=== PATIENT | female | born 1985 | race Two or more races ===

== ENCOUNTER 2016-04-12 17:34 | Emergency (ER) | payer OTHER ==
[~2016-04-12] VITALS: Ht 162.6 cm; Wt 68.9 kg
[2016-04-12 18:39] LABS: BASOPHILS % (AUTO) 1.3 % (0.0-2.0); LYMPHOCYTES % (AUTO) 26.2 % (20.0-45.0); MEAN CORPUSCULAR HEMOGLOBIN 30.6 PG (27.0-31.0); MEAN CORPUSCULAR HGB CONC 33.6 G/DL (32.0-36.0); MEAN CORPUSCULAR VOLUME 91 FL (80-99); MEAN PLATELET VOLUME 9.4 FL (6.5-10.1); MONOCYTES % (AUTO) 7.6 % (1.0-10.0); NEUTROPHILS % (AUTO) 62.9 % (45.0-75.0); PLATELET COUNT 190 K/UL (150-450); RED BLOOD COUNT 4.04 M/UL (4.20-5.40); RED CELL DISTRIBUTION WIDTH 12.6 % (11.6-14.8); WHITE BLOOD COUNT 9.6 K/UL (4.8-10.8)
[2016-04-12 18:41] LABS: APPEARANCE,URINE CLEAR; KETONES,URINE 1+ (NEGATIVE); LEUKOCYTE ESTERASE ,URINE 1+ (NEGATIVE); NITRITE,URINE NEGATIVE (NEGATIVE); PH,URINE 7 (4.5-8.0); PROTEIN,URINE NEGATIVE (NEGATIVE); UROBILINOGEN,URINE 1 MG/DL (0.0-1.0)
[2016-04-12 18:53] LABS: BACTERIA,URINE FEW /HPF; RBC,URINE 20-30 /HPF (0 - 2); SQUAMOUS EPITHELIAL CELL,UR FEW /LPF (NONE/OCC); WBC,URINE 0-2 /HPF (0 - 2)
[2016-04-12 18:56] LABS: INR 1.1 (0.9-1.1); PROTHROMBIN TIME 11.1 SEC (9.30-11.50)
[2016-04-12 19:00] LABS: ALANINE AMINOTRANSFERASE 12 U/L (3-33); ALBUMIN/GLOBULIN RATIO 1.3 (1.0-2.7); ANION GAP 15 (5-15); ASPARTATE AMINO TRANSFERASE 15 U/L (5-40); CALCIUM 9.3 mg/dL (8.6-10.2); CARBON DIOXIDE 27 mEQ/L (20-30); CHLORIDE 97 mEQ/L (98-107); CREATININE 0.7 mg/dL (0.5-0.9); GLOMERULAR FILTRATION RATE > 60 mL/min (>60); HEMOLYSIS 5; POTASSIUM 4.1 mEQ/L (3.4-4.9); SODIUM 139 mEQ/L (135-145); TOTAL PROTEIN 7.6 g/dL (6.6-8.7)
--- NOTE | 2016-04-12 19:59 | Emergency Room Report ---
History of Present Illness General Chief Complaint: Complications Source: Patient Present Illness HPI Patient presents with vaginal bleeding and lower abdominal pain. This began this morning. She believes she passed some tissue along with clot this evening. The pain is 8/10 cramping and not radiating. She denies any fevers or dysuria. The patient has 3 live children the youngest being 5 years old. She's never had a miscarriage in the past. She denies any pelvic infection or ectopic. The pain is somewhat better than earlier this morning. The bleeding is decreasing. She believes her type is AB+. No fevers, dysuria, dyspnea, leg swelling, rashes, change in bowels. Some AM nausea worsened by taking medication. Allergies: Coded Allergies: MORPHINE (Verified Allergy, Unknown, 04/12/16) ONDANSETRON (Verified Allergy, Unknown, 04/12/16) Patient History Past Medical History: see triage record Social History: Denies: alcohol use, drug use, smoking Social History Narrative with children. With boyfriend Now: Yes : 4 Para: 3 Reviewed Nursing Documentation: PMH: Agreed, PSxH: Agreed Nursing Documentation-PMH Past Medical History: No History, Except For History Of Psychiatric Problem: Yes - ANXIETY Review of Systems All Other Systems: negative except mentioned in HPI Physical Exam Vital Signs Date Time Temp Pulse Resp B/P Pulse Ox O2 Delivery O2 Flow Rate FiO2 04/12/16 17:51 97.9 87 20 112/58 100 Room Air Sp02 EP Interpretation: reviewed, normal General Appearance: well appearing, no apparent distress, GCS 15 Head: normocephalic Eyes: bilateral eye PERRL, bilateral eye normal inspection ENT: moist mucus membranes Neck: supple Respiratory: lungs clear, normal breath sounds Cardiovascular #1: regular rate, rhythm Cardiovascular #2: 2+ radial (R) Gastrointestinal: normal inspection, normal bowel sounds, non tender, no mass, non-distended Genitourinary: other - see course Musculoskeletal: back normal, gait/station normal, normal range of motion Neurologic: alert, oriented x3, grossly normal Psychiatric: mood/affect normal Skin: normal inspection, warm/dry Medical Decision Making Diagnostic Impression: Primary Impression: Threatened miscarriage Additional Impression: 8 weeks gestation of ER Course Patient presents with 8 week with bleeding and pain. Ddx: ectopic, threatened miscarriage, UTI amongst others. Emergent need to exclude ectopic. Labs also needed. Will give hydration (though patient slightly against this stating saline causes nausea for her). Also will give tylenol. Labs with appropriate HCG, good H/H. Type AB+. Ultrasound with heart rate and some blood in canal. Reported 2 pads. Then stated had more bleeding. Pelvic. No active bleed. Some old blood. Os closed. Uterus slightly large. No tenderness. Discussed possible courses. Stable for outpatient observation and treatment. Laboratory Tests Test 04/12/16 18:20 04/12/16 18:24 Urine Color Yellow Urine Appearance Clear Urine pH 7 (4.5-8.0) Urine Specific [place] 1.010 (1.005-1.035) Urine Protein Negative (NEGATIVE) Urine Glucose (UA) Negative (NEGATIVE) Urine Ketones 1+ (NEGATIVE) H Urine Occult Blood 5+ (NEGATIVE) H Urine Nitrite Negative (NEGATIVE) Urine Bilirubin Negative (NEGATIVE) Urine Urobilinogen 1 MG/DL (0.0-1.0) H Urine Leukocyte Esterase 1+ (NEGATIVE) H Urine RBC 20-30 /HPF (0 - 2) H Urine WBC 0-2 /HPF (0 - 2) Urine Squamous Epithelial Cells Few /LPF (NONE/OCC) Urine Bacteria Few /HPF (NONE) White Blood Count 9.6 K/UL (4.8-10.8) Red Blood Count 4.04 M/UL (4.20-5.40) L Hemoglobin 12.4 G/DL (12.0-16.0) Hematocrit 36.7 % (37.0-47.0) L Mean Corpuscular Volume 91 FL (80-99) Mean Corpuscular Hemoglobin 30.6 PG (27.0-31.0) Mean Corpuscular Hemoglobin Concent 33.6 G/DL (32.0-36.0) Red Cell Distribution Width 12.6 % (11.6-14.8) Platelet Count 190 K/UL (150-450) Mean Platelet Volume 9.4 FL (6.5-10.1) Neutrophils (%) (Auto) 62.9 % (45.0-75.0) Lymphocytes (%) (Auto) 26.2 % (20.0-45.0) Monocytes (%) (Auto) 7.6 % (1.0-10.0) Eosinophils (%) (Auto) 2.0 % (0.0-3.0) Basophils (%) (Auto) 1.3 % (0.0-2.0) Prothrombin Time 11.1 SEC (9.30-11.50) Prothrombin Time INR 1.1 (0.9-1.1) PTT 26 SEC (23-33) Sodium Level 139 mEQ/L (135-145) Potassium Level 4.1 mEQ/L (3.4-4.9) Chloride Level 97 mEQ/L (98-107) L Carbon Dioxide Level 27 mEQ/L (20-30) Anion Gap 15 (5-15) Blood Urea Nitrogen 10 mg/dL (7-23) Creatinine 0.7 mg/dL (0.5-0.9) Estimate Glomerular Filtration Rate > 60 mL/min (>60) Glucose Level 101 mg/dL (74-106) Calcium Level 9.3 mg/dL (8.6-10.2) Total Bilirubin 0.2 mg/dL (0.0-1.2) Aspartate Amino Transferase (AST) 15 U/L (5-40) Alanine Aminotransferase (ALT) 12 U/L (3-33) Alkaline Phosphatase 45 U/L (35-104) Total Protein 7.6 g/dL (6.6-8.7) Albumin 4.4 g/dL (3.5-5.2) Globulin 3.2 g/dL Albumin/Globulin Ratio 1.3 (1.0-2.7) Human Chorionic Gonadotropin, Quant 74008 mIU/mL Microbiology Date/Time Source Procedure Growth Status 04/12/16 22:55 Vaginal Wet Prep - Final Complete CT/MRI/US Diagnostic Results CT/MRI/US Diagnostic Results : Imaging Test Ordered: pelvic U/S Impression HR and viable fetus Impression: Single living intrauterine 8 weeks one day gestational age. Small subchorionic bleed. Last Vital Signs Date Time Temp Pulse Resp B/P Pulse Ox O2 Delivery O2 Flow Rate FiO2 04/12/16 22:55 97.8 88 22 104/60 100 Room Air Status: improved Disposition: HOME, SELF-CARE Condition: Improved Neil Becerra M.D. Apr 12, 2016 19:59
[2016-04-12 20:20] VITALS: BP 101/57
[2016-04-12 21:57] VITALS: BP 104/60
[2016-04-12 22:55] VITALS: BP 104/60
--- NOTE | 2016-04-13 13:24 | Diagnostic Imaging Report ---
Indication:. Vaginal bleeding. Technique: Grayscale and duplex Doppler imaging of the pelvis performed utilizing a transabdominal scan and endovaginal scan. Comparison: None Findings: There is a single living intrauterine demonstrated. By crown-rump length gestational age is estimated at 8 weeks one day. Heart tones are demonstrated. Yolk sac noted. Both ovaries appear normal. No free fluid seen. There is a small subchorionic collection noted. Impression: Single living intrauterine 8 weeks one day gestational age. Small subchorionic bleed.
== END 2016-04-12 22:59 | disposition home or self-care (01) ==
LOC: EMR 20:42
DX: O20.0 Threatened abortion (principal); Z3A.08 8 weeks gestation of pregnancy; O99.342 Other mental disorders complicating pregnancy, second trimester; F41.9 Anxiety disorder, unspecified; Z88.6 Allergy status to analgesic agent
CPT/HCPCS: 36415; 76856; 80053; 81003; 84702; 85025; 85610; 85730; 86850; 86900; 86901; 87210; 96374